=== PATIENT | male | born 1940 | race Hispanic/Latino ===

== ENCOUNTER 2019-05-19 11:13 | Day surgery (SDC) | payer MEDICARE, OTHER ==
[~2019-05-19 11:13] MED LIST: IOPIDINE ONE; MYDRIACYL ONE; NEOFRIN ONE
[2019-05-19] MEDS ORDERED: IOPIDINE OD ONE (11:31)
[2019-05-19] MEDS ORDERED: NEOFRIN OD ONE (11:32)
[2019-05-19] MEDS ORDERED: MYDRIACYL OD ONE (11:32)
[2019-05-19 12:58] VITALS: BP 142/75
== END 2019-05-19 14:04 | disposition home or self-care (01) ==
LOC: OR 11:13
PROVIDERS: ATTEND Specialist
DX: H26.491 Other secondary cataract, right eye (principal); E78.00 Pure hypercholesterolemia, unspecified; I10 Essential (primary) hypertension; G47.30 Sleep apnea, unspecified; Z96.643 Presence of artificial hip joint, bilateral; Z72.89 Other problems related to lifestyle; Z80.8 Family history of malignant neoplasm of other organs or systems; Z98.890 Other specified postprocedural states; Z87.891 Personal history of nicotine dependence; Z79.899 Other long term (current) drug therapy; Z98.41 Cataract extraction status, right eye; Z98.42 Cataract extraction status, left eye